=== PATIENT | male | born 1975 | race Two or more races ===

== ENCOUNTER 2020-02-11 13:00 | Emergency (ER) | payer MEDICAID ==
[~2020-02-11] VITALS: Ht 177.8 cm; Wt 74.8 kg
[2020-02-11 13:14] VITALS: BP 115/80
[2020-02-11] MEDS ORDERED: BENZOCAINE (DENTAL) 20 % SPRAY 60ML MT ONE (15:30)
== END 2020-02-11 15:51 | disposition home or self-care (01) ==
LOC: ER 13:00
DX: K08.89 Other specified disorders of teeth and supporting structures (principal); R51 Headache; F17.210 Nicotine dependence, cigarettes, uncomplicated; Z88.0 Allergy status to penicillin

== ENCOUNTER 2020-12-14 07:29 | Emergency (ER) | payer MEDICAID ==
[~2020-12-14] VITALS: Ht 177.8 cm; Wt 77.1 kg
[2020-12-14 07:31] VITALS: BP 139/80
[2020-12-14] MEDS ORDERED: BENZOCAINE (DENTAL) 20 % SPRAY 60ML MT ONE (08:15)
[2020-12-14] MEDS ORDERED: IBUPROFEN 800 MG TAB PO ONE (08:15)
== END 2020-12-14 08:27 | disposition home or self-care (01) ==
LOC: ER 07:29
DX: K02.9 Dental caries, unspecified (principal); F17.210 Nicotine dependence, cigarettes, uncomplicated; Z88.0 Allergy status to penicillin

== ENCOUNTER 2022-02-26 06:57 | Emergency (ER) | payer MEDICAID ==
[~2022-02-26] VITALS: Ht 154.9 cm; Wt 81.6 kg
[2022-02-26 07:40] VITALS: BP 132/85
[2022-02-26] MEDS ORDERED: IBUP800T27 PO (08:20)
[2022-02-26] MEDS ORDERED: CLIN300C8 PO (08:20)
[2022-02-26] MEDS ORDERED: BENZOCAINE (DENTAL) 20 % SPRAY 60ML MT ONE (08:30)
== END 2022-02-26 08:52 | disposition home or self-care (01) ==
LOC: ER 06:57
DX: K02.9 Dental caries, unspecified (principal); F12.10 Cannabis abuse, uncomplicated; F17.210 Nicotine dependence, cigarettes, uncomplicated; Z79.1 Long term (current) use of non-steroidal anti-inflammatories (NSAID); Z79.2 Long term (current) use of antibiotics; Z88.0 Allergy status to penicillin; Z91.018 Allergy to other foods

== ENCOUNTER 2024-04-20 18:57 | Emergency (ER) | payer MEDICAID ==
[~2024-04-20 18:57] MED LIST: CLIN1CAP70 PO; IBUP-1456 PO
[2024-04-20] MEDS ORDERED: ONDANSETRON HCL 4 MG/2 ML VIAL IM ONE (19:30)
[2024-04-20] MEDS: ALBUTEROL SULF 2.5 MG/0.5ML(0.5%) NEB SOLN NEB ONE (19:30)
[2024-04-20] MEDS ORDERED: DexAMETHasone SOD PHOS 10MG/1ML VIAL INJ IM ONE (19:30)
[2024-04-20] MEDS: IPRATROPIUM BROM 0.5 MG/2.5ML INH SOL NEB ONE (19:30)
[2024-04-20] MEDS ORDERED: KETOROLAC TROMETH 60MG/2ML VIAL IM ONE (19:30)
== END 2024-04-20 21:39 | disposition left against medical advice (07) ==
LOC: ER 18:57 → EDUNIT# 18:57 → EDBD 18:57 → ER 21:39
DX: F19.10 Other psychoactive substance abuse, uncomplicated (principal); F15.10 Other stimulant abuse, uncomplicated; R10.9 Unspecified abdominal pain; R07.89 Other chest pain; F17.210 Nicotine dependence, cigarettes, uncomplicated; F10.90 Alcohol use, unspecified, uncomplicated; Y90.0 Blood alcohol level of less than 20 mg/100 ml

== ENCOUNTER 2024-04-20 22:29 | Emergency (ER) | payer MEDICAID ==
[~2024-04-20] VITALS: Ht 180.3 cm; Wt 75.0 kg
[2024-04-20 23:09] VITALS: BP 111/81; PULSE 111; RESP 20; TEMP 97.6; O2SAT 99
== END 2024-04-20 23:00 | disposition home or self-care (01) ==
LOC: ER 22:29 → EDBD 22:29 → ER 23:00
DX: F15.10 Other stimulant abuse, uncomplicated (principal); R07.9 Chest pain, unspecified; R10.9 Unspecified abdominal pain; F17.210 Nicotine dependence, cigarettes, uncomplicated; F12.10 Cannabis abuse, uncomplicated

== ENCOUNTER 2024-04-21 08:57 | Inpatient (IN) | payer MEDICAID ==
[~2024-04-21] VITALS: Ht 172.7 cm; Wt 63.6 kg
[2024-04-21 09:18] VITALS: BP 138/108; PULSE 122; RESP 31; TEMP 98.5; O2SAT 95
[2024-04-21 09:54] LABS: Hematocrit 53.3 % (41.0-53.0); Mean Corpuscular Hemoglobin 32.3 pg (28.0-32.0); Mean Corpuscular Hgb Conc. 35.6 g/dL (32.0-36.0); Mean Corpuscular Volume 90.6 fL (80.0-100.0); Red Blood Cells 5.88 10^6/uL (4.5-5.90); Red Cell Distribution Width 14.1 % (11.8-14.3)
[2024-04-21 10:09] LABS: Alanine Aminotransferase 39 U/L (7-40); Alkaline Phosphatase 120 U/L (46-116); Anion Gap 17 (5-15); Aspartate Aminotransferase 33 U/L (13-40); BUN/Creatinine Ratio 8.3 (10.0-20.0); Blood Urea Nitrogen 44 mg/dL (9-23); Calcium 10.9 mg/dL (8.5-10.1); Carbon Dioxide 23 mmol/L (20-30); Chloride 101 mmol/L (98-107); Glucose 135 mg/dL (74-106); Potassium 4.7 mmol/L (3.5-5.1); Sodium 141 mmol/L (136-145)
[2024-04-21 10:10] LABS: Bilirubin, Total 0.7 mg/dL (0.2-1.0); Total Protein 10.3 g/dL (5.7-8.2)
[2024-04-21 10:11] LABS: White Blood Cell 30.9 10^3/uL (4.4-10.8)
[2024-04-21 10:13] LABS: Basophils % (manual) 0 (0.0-2.0); Blast Cells 0; Eosinophils % (manual) 0 (0-7); Metamyelocytes % 0; Myelocytes % 0; Promyelocytes % 0; Reactive Lymphocytes 0
[2024-04-21 10:19] LABS: Band Neutrophils % (manual) 1; Giant Platelets Few; Lymphocytes % (manual) 2 (10.0-50.0); Monocytes % (manual) 7 (0-12); Platelet Estimate Increased
[2024-04-21 10:20] LABS: Albumin 6.2 g/dL (3.2-4.8)
[2024-04-21] MEDS: LACTATED RINGER'S 2,000 ML IV ONE (10:22)
[2024-04-21] MEDS: SODIUM CHLORIDE 0.9% 2,000 ML IV ONE (10:22)
[2024-04-21] MEDS: NALOXONE HCL 1MG/ML 2ML SYRINGE IV ONE (10:23)
[2024-04-21 10:36] LABS: Blood Alcohol < 3.0 mg/dL (<10)
[2024-04-21 10:48] LABS: Creatine Kinase IFCC 1818 U/L (46-171)
[2024-04-21 10:48] LABS: Base Excess -5.9 mmol/L (-2.0-2.0)
[2024-04-21] MEDS ORDERED: ENOXAPARIN SOD 40 MG/0.4 ML SYRINGE SC SCH (12:00)
[2024-04-21] MEDS ORDERED: SODIUM CHLORIDE 0.9% 1,000 ML IV SCH (12:00)
[2024-04-21] MEDS ORDERED: ONDANSETRON HCL 4 MG/2 ML VIAL IV PRN (12:00)
[2024-04-21] MEDS ORDERED: DOCUSATE SOD 100 MG CAP PO PRN (12:00)
[2024-04-21] MEDS ORDERED: MORPHINE SULFATE INJ 2 MG/ml SYRG IV PRN ×2 (12:00→12:30)
[2024-04-21] MEDS ORDERED: NITROGLYCERIN 0.4 MG SL TAB SL PRN (12:30)
[2024-04-21 12:55] LABS: Uric Acid 16.7 mg/dL (3.7-9.2)
[2024-04-21] MEDS: SODIUM CHLORIDE 0.9% 1,000 ML IV SCH (13:00)
[2024-04-21 13:23] LABS: INR 1.03 (0.9-1.15); Prothrombin Time 10.9 sec (9.3-11.8)
[2024-04-21 14:39] LABS: Lactic Acid w/Reflex 2.7 mmol/L (0.4-2.0)
[2024-04-21 15:18] LABS: Sodium Urine 112 mmol/L (40-220)
[2024-04-21 15:23] LABS: Protein, Urine 212.5 mg/dL (0.0-11.9)
[2024-04-21 15:25] LABS: Amphetamine Screen, Urine Pos (NEGATIVE); Barbiturate Scree,Urine Neg (NEGATIVE); Benzodiazephine Screen, Urine Neg (NEGATIVE); Cannabinoid Screen, Urine Pos (NEGATIVE); Cocaine Screen, Urine Neg (NEGATIVE); Opiate Scree,Urine Neg (NEGATIVE); Phencyclidine Screen, Urine Neg (NEGATIVE)
[2024-04-21 15:26] LABS: Urine Protein/Creatinine Ratio 1.03
[2024-04-21 15:27] LABS: Urine Amorphous Crystal FEW /hpf (None Seen); Urine Bacteria FEW /hpf (None Seen); Urine Blood 3+ /uL (Negative); Urine Clarity Turbid (Clear); Urine Color Yellow (Yellow); Urine Hyaline Cast MOD /lpf (0 - 2); Urine Mucus FEW (None Seen); Urine Protein, UAD 2+ (Negative); Urine Specific Gravity 1.026 (1.001-1.035); Urine Urobilinogen Normal (Negative); Urine WBC 8 /hpf (0 - 3)
[2024-04-21] MEDS ORDERED: PIPERACILLIN-TAZOB 3.375GM 100 ML IV ONE (18:45)
[2024-04-22] MEDS ORDERED: ENOXAPARIN SOD 30 MG/0.3 ML SYRINGE SC SCH (10:00)
[2024-04-22] MEDS ORDERED: SODIUM CHLORIDE 0.9% 1,000 ML IV SCH (13:00)
[2024-04-22] MEDS ORDERED: PIPERACILLIN-TAZOB 3.375GM 100 ML IV SCH (15:00)
[2024-04-22] MEDS ORDERED: SEVELAMER 800 MG TAB PO SCH (18:00)
== END 2024-04-21 16:01 | disposition left against medical advice (07) | DRG 351 ==
LOC: EDBD 08:57 → ER 08:57 → EDUNIT# 08:57 → TELE 12:23
PROVIDERS: ADMIT Nurse Practitioner Family; ATTEND Nurse Practitioner Acute Care
DX: M62.82 Rhabdomyolysis (principal); N17.0 Acute kidney failure with tubular necrosis; E87.21 Acute metabolic acidosis; E86.0 Dehydration; Z53.29 Procedure and treatment not carried out because of patient's decision for other reasons; D75.839 Thrombocytosis, unspecified; E83.52 Hypercalcemia; E83.39 Other disorders of phosphorus metabolism; D72.829 Elevated white blood cell count, unspecified; F17.210 Nicotine dependence, cigarettes, uncomplicated; F14.10 Cocaine abuse, uncomplicated; F15.10 Other stimulant abuse, uncomplicated; Z88.0 Allergy status to penicillin; Z79.899 Other long term (current) drug therapy
CPT/HCPCS: 36415; 36600; 71045; 76775; 80053; 80307; 80320; 81001; 82306; 82550; 82570; 82805; 83605; 83735; 83970; 84100; 84156; 84300; 84550; 85007; 85027; 85384; 85610; 87040; 93005; 96361; 96374; G0378

== ENCOUNTER 2024-04-21 18:32 | Inpatient (IN) | payer MEDICAID ==
[~2024-04-21] VITALS: Ht 154.9 cm; Wt 65.0 kg
[2024-04-21 18:39] VITALS: BP 131/95; PULSE 106; RESP 18; O2SAT 95
[2024-04-21] MEDS ORDERED: ACETAMINOPHEN 325 MG TAB PO PRN (21:15)
[2024-04-21] MEDS ORDERED: SODIUM CHLORIDE 0.9% 1,000 ML IV SCH (21:15)
[2024-04-21] MEDS ORDERED: ONDANSETRON HCL 4 MG/2 ML VIAL IV PRN (21:15)
[2024-04-21 21:41] LABS: Basophils # (auto) 0.1 10 ^3/uL (0-0.2); Basophils % (auto) 0.5 % (0.0-2.0); Eosinophils # (auto) 0 10 ^3/uL (0-0.8); Hematocrit 45.8 % (41.0-53.0); Hemoglobin 15.5 g/dL (13.5-17.5); Lymphocytes # (auto) 1.4 10 ^3/uL (0.4-5.4); Lymphocytes % (auto) 5.6 % (10.0-50.0); Mean Corpuscular Hemoglobin 31.3 pg (28.0-32.0); Mean Corpuscular Hgb Conc. 33.8 g/dL (32.0-36.0); Mean Corpuscular Volume 92.7 fL (80.0-100.0); Monocytes # (auto) 2.3 10 ^3/uL (0-1.3); Monocytes % (auto) 9.3 % (0.0-12.0); Neutrophils # (auto) 21.2 10 ^3/uL (1.6-8.6); Neutrophils % (auto) 84.6 % (37.0-80.0); Red Blood Cells 4.95 10^6/uL (4.5-5.90); Red Cell Distribution Width 14.1 % (11.8-14.3); White Blood Cell 25.1 10^3/uL (4.4-10.8)
[2024-04-21 21:53] LABS: Lactic Acid w/Reflex 2.2 mmol/L (0.4-2.0)
[2024-04-21 22:07] LABS: Chloride 104 mmol/L (98-107); Potassium 4.1 mmol/L (3.5-5.1); Sodium 137 mmol/L (136-145)
[2024-04-21 22:08] LABS: Anion Gap 13 (5-15); Carbon Dioxide 20 mmol/L (20-30)
[2024-04-21 22:09] LABS: Calcium 9.5 mg/dL (8.5-10.1)
[2024-04-21 22:13] LABS: BUN/Creatinine Ratio 17.9 (10.0-20.0); Glucose 91 mg/dL (74-106)
[2024-04-21 22:15] LABS: Blood Urea Nitrogen 60 mg/dL (9-23)
[2024-04-21 22:27] LABS: Creatine Kinase IFCC 3257 U/L (46-171)
[2024-04-21 22:38] LABS: Uric Acid 12.1 mg/dL (3.7-9.2)
== END 2024-04-21 23:47 | disposition left against medical advice (07) | DRG 469 ==
LOC: ER 18:32 → OVERFLOW 21:08
PROVIDERS: ADMIT Nurse Practitioner; ATTEND Nurse Practitioner
DX: N17.9 Acute kidney failure, unspecified (principal); M62.82 Rhabdomyolysis; F17.210 Nicotine dependence, cigarettes, uncomplicated; F15.10 Other stimulant abuse, uncomplicated; D72.829 Elevated white blood cell count, unspecified; Z88.0 Allergy status to penicillin; Z59.00 Homelessness unspecified; Z79.1 Long term (current) use of non-steroidal anti-inflammatories (NSAID); Z79.899 Other long term (current) drug therapy
CPT/HCPCS: 36415; 74176; 80048; 82550; 83605; 84550; 85025; G0378